=== PATIENT | female | born 1970 | race Caucasian/White ===

== ENCOUNTER 2017-08-18 09:09 | Inpatient (IN) | payer MEDICARE, OTHER ==
[~2017-08-18] VITALS: Ht 172.7 cm; Wt 74.8 kg
[~2017-08-18 09:09] MED LIST: ALBU3IS INH; ALBU90OI INH; ASPI81CH PO; ASPI81EC; ASPI81EC PO; B Complex1 EAC2 PO; BECL80OI INH; CALCA500CH PO; CARV25 PO; CEPH500 PO; CEPHALEXIN; CHLO25 PO; CHOL10002 PO; CIPR500 PO; CRUTCH USE; CYCL10 PO; DOCU100; DOCU100 PO; DOXY100 PO; Duoneb 2.5-0.5 M3 ML INH; FAMO20 PO; FOLI1 PO; FURO20; GUAI600T33 PO; HYDACE5 PO; IBUP200; IBUP800; IBUP800 PO; LEVO750 PO; LISHYD2012 PO; LORA10 PO; MEDR150I; MEDR150I IM; METO50; MULVITMIND; MULVITMIND PO; NAPR500 PO; NAPR550 PO; NEOPOLHCSU OT; NORT10 PO; OMEP20ER; OMEP20ER PO; OXYACE5T PO; OXYC5; PANT20 PO; PENVK500 PO; POLY17UD PO; PRED20 PO; PROM25 PO; Percocet 5-3251 EACH PO; Prednisone10 MG PO; Prednisone20 MG PO; Prinivil5 MG PO; RXOXYACE PO; RXPROM25 PO; STEROID INHALER; SUCR1 PO; SULTRIDS PO; SUMA25 PO; TRAM50 PO; VITB100 PO; ZONI100 PO; Zithromax250 MG PO; [UNRECOGNIZED DRUG - REMARK]
[2017-08-18 09:52] LABS: BASOPHILS ABSOLUTE AUTO 0.05 K/mm3 (0.00-0.23); BASOPHILS PERCENT AUTO 1 % (0-2); EOSINOPHILS ABSOLUTE AUTO 0.26 K/mm3 (0.00-0.68); EOSINOPHILS PERCENT AUTO 4 % (0-6); Hematocrit 44.4 % (33.0-51.0); Hemoglobin 14.5 g/dL (11.5-16.0); IMMATURE GRAN ABSOLUTE AUTO 0.01 K/mm3 (0.00-0.10); IMMATURE GRAN PERCENT AUTO 0 % (0-1); LYMPHOCYTES ABSOLUTE AUTO 2.52 K/mm3 (0.84-5.20); LYMPHOCYTES PERCENT AUTO 34 % (21-46); MONOCYTES ABSOLUTE AUTO 0.52 K/mm3 (0.16-1.47); MONOCYTES PERCENT AUTO 7 % (4-13); Mean Corpuscular HGB 31.3 pg (26.0-34.0); Mean Corpuscular HGB Conc 32.7 g/dL (31.5-36.5); Mean Corpuscular Volume 96 fL (80-100); NEUTROPHILS PERCENT AUTO 55 % (41-73); Platelet Count 301 K/mm3 (150-400); RDW Coefficient Variation 12.2 % (11.7-14.2); RDW Standard Deviation 43.4 fL (35.1-46.3); Red Blood Cell Count 4.63 M/mm3 (3.80-5.20); White Blood Cell Count 7.46 K/mm3 (4.00-11.30)
[2017-08-18 10:08] LABS: Alanine Aminotransfer (ALT/SGP 17 U/L (12-78); Albumin, Blood 3.7 g/dL (3.4-5.0); Alk Phos 98 U/L (50-136); Anion Gap 10 mmol/L (6-16); Aspartate Aminotrans (AST/SGOT 17 U/L (12-37); Bilirubin, Total 0.4 mg/dL (0.1-1.0); Blood Urea Nitrogen 7 mg/dL (8-24); Bun/Creatinine Ratio 9.5 (12.0-20.0); CO2, Blood 24 mmol/L (21-32); Calcium, Blood 8.7 mg/dL (8.5-10.1); Chloride, Blood 105 mmol/L (98-108); Creatinine, Blood 0.74 mg/dL (0.40-1.00); Globulin, Blood 3.8 g/dL (2.2-4.0); Glomerular Filtration Rate >60 (60-); Glucose, Blood 97 mg/dL (70-99); Potassium, Blood 3.8 mmol/L (3.5-5.5); Sodium, Blood 139 mmol/L (136-145); Total Protein, Blood 7.5 g/dL (6.4-8.2)
[2017-08-18] MEDS ORDERED: ANORO ELLIPTA1 EACH INH (10:27)
[2017-08-18] MEDS ORDERED: PROM25 PO (10:28)
[2017-08-18] MEDS ORDERED: SUMA25 PO (10:29)
[2017-08-18] MEDS ORDERED: ALLEGRA ALLERG180 M1 PO (10:30)
[2017-08-18] MEDS ORDERED: Flovent Diskus50 MCG IH (10:31)
[2017-08-18 15:21] LABS: Source, Urine Voided
[2017-08-18 15:30] LABS: Bilirubin, Urine Neg (Neg); Blood, Urine Neg (Neg); Glucose Qualitative, Urine Neg (Neg); Ketones, Urine Neg (Neg); Leukocyte Esterase, Urine Neg (Neg); Nitrite, Urine Neg (Neg); Protein, Urine Neg (Neg); Specific Gravity, Urine 1.015 (1.003-1.022); Urobilinogen, Urine NORM (Normal)
[2017-08-18 15:38] LABS: Appearance, Urine Clear (Clear); Color, Urine Yellow (P-Yellow)
[2017-08-19] MEDS ORDERED: PRED20 PO (12:06)
== END 2017-08-19 13:08 | disposition home or self-care (01) | DRG 282 ==
LOC: ER 09:09 → PCU 11:11
PROVIDERS: Emergency Medicine
PROC: 3E0234Z Introduction of Serum, Toxoid and Vaccine into Muscle, Percutaneous Approach (ICD-10-PCS; 2017-08-18)
PROC: 4A023N7 Measurement of Cardiac Sampling and Pressure, Left Heart, Percutaneous Approach (ICD-10-PCS; principal; 2017-08-19)
PROC: B2111ZZ Fluoroscopy of Multiple Coronary Arteries using Low Osmolar Contrast (ICD-10-PCS; 2017-08-19)
DX: I21.A1 Myocardial infarction type 2 (principal); F17.200 Nicotine dependence, unspecified, uncomplicated; G43.909 Migraine, unspecified, not intractable, without status migrainosus; G89.29 Other chronic pain; J44.9 Chronic obstructive pulmonary disease, unspecified; M54.9 Dorsalgia, unspecified; I10 Essential (primary) hypertension; I34.1 Nonrheumatic mitral (valve) prolapse; I34.0 Nonrheumatic mitral (valve) insufficiency; Z23 Encounter for immunization
CPT/HCPCS: 36415; 71046; 80053; 81003; 83880; 84484; 85025; 93005; 93010; 93308; 93321; 93454; 94640; 94760; 99152; 99285; C1769; C1894; C9113; G0008; J1644; J1650; J2250; J2270; J3010; J7030; Q2038; Q9967

== ENCOUNTER → 2018-03-21 | Outpatient (CLI) | payer MEDICARE ==
[~2018-03-21] MED LIST changes: +ALLEGRA ALLERG180 M1 PO; +ANORO ELLIPTA1 EACH INH; +Flovent Diskus50 MCG IH
[2018-03-23 15:08] LABS: HPV 16 Negative (Negative); HPV 18 Negative (Negative); HPV OTHER HR TYPES Negative (Negative)
== END | disposition home or self-care (01) ==
LOC: LAB 10:03 → LAB SHORT 10:03
PROVIDERS: Obstetrics & Gynecology
DX: Z01.419 Encounter for gynecological examination (general) (routine) without abnormal findings (principal)
CPT/HCPCS: 87624; G0123

== ENCOUNTER 2018-06-07 11:29 | Emergency (ER) | payer OTHER, MEDICARE ==
[~2018-06-07] VITALS: Ht 172.7 cm; Wt 71.7 kg
[2018-06-07] MEDS ORDERED: Voltaren100 GM TOP (12:05)
[2018-06-07] MEDS ORDERED: Baclofen10 MG PO (12:05)
== END 2018-06-07 12:16 | disposition home or self-care (01) ==
LOC: ER 11:29
DX: M54.2 Cervicalgia (principal); I50.9 Heart failure, unspecified; J44.9 Chronic obstructive pulmonary disease, unspecified; F17.200 Nicotine dependence, unspecified, uncomplicated; Z88.1 Allergy status to other antibiotic agents; Z91.030 Bee allergy status; Z88.8 Allergy status to other drugs, medicaments and biological substances; Z91.013 Allergy to seafood; Z79.899 Other long term (current) drug therapy; Z79.51 Long term (current) use of inhaled steroids; Z79.82 Long term (current) use of aspirin; Z79.52 Long term (current) use of systemic steroids; V69.9XXA Occupant (driver) (passenger) of heavy transport vehicle injured in unspecified traffic accident, initial encounter
CPT/HCPCS: 99282

== ENCOUNTER → 2018-11-28 | Outpatient (CLI) | payer MEDICARE ==
[~2018-11-28] MED LIST changes: +Baclofen10 MG PO; +Voltaren100 GM TOP
== END | disposition home or self-care (01) ==
LOC: LAB SHORT 10:46 → PLD 10:46
DX: L57.0 Actinic keratosis (principal)
CPT/HCPCS: 88305

== ENCOUNTER → 2019-03-28 | Outpatient (CLI) | payer MEDICARE ==
[~2019-03-28] MED LIST changes: +Ultram50 MG PO
[2019-03-30 16:06] LABS: HPV 16 Negative (Negative); HPV 18 Negative (Negative); HPV OTHER HR TYPES Negative (Negative)
== END | disposition home or self-care (01) ==
LOC: LAB 12:08 → LAB SHORT 12:08
PROVIDERS: Obstetrics & Gynecology
DX: Z01.419 Encounter for gynecological examination (general) (routine) without abnormal findings (principal)
CPT/HCPCS: 87624; G0123

== ENCOUNTER 2019-04-04 11:00 | Emergency (ER) | payer MEDICARE ==
[~2019-04-04] VITALS: Ht 172.7 cm; Wt 68.5 kg
[~2019-04-04 11:00] MED LIST changes: -Ultram50 MG PO
[2019-04-04] MEDS ORDERED: Ultram50 MG PO (14:05)
== END 2019-04-04 14:15 | disposition home or self-care (01) ==
LOC: ER 11:00
DX: M25.511 Pain in right shoulder (principal); J43.9 Emphysema, unspecified; I50.9 Heart failure, unspecified; F17.200 Nicotine dependence, unspecified, uncomplicated; Z85.07 Personal history of malignant neoplasm of pancreas; Z85.840 Personal history of malignant neoplasm of eye; Z88.1 Allergy status to other antibiotic agents; Z88.8 Allergy status to other drugs, medicaments and biological substances; Z91.013 Allergy to seafood; Z91.030 Bee allergy status; Z79.82 Long term (current) use of aspirin; Z79.899 Other long term (current) drug therapy
CPT/HCPCS: 73030; 96372; 99283-25; J1885

== ENCOUNTER 2019-05-09 05:27 | Day surgery (SDC) | payer MEDICARE ==
[~2019-05-09] VITALS: Ht 172.7 cm; Wt 69.0 kg
[~2019-05-09 05:27] MED LIST changes: +Ultram50 MG PO
--- NOTE | 2019-05-09 08:15 | NUR ---
PT TOLERATES ZUHAIR WELL. VSS. NADN. PT IV DC'D. CATH INTACT. PRESSURE DSG APPLIED. PT DC TO HOME VIA W/C BY S/O\.
== END 2019-05-09 22:55 | disposition home or self-care (01) ==
LOC: MHTC 05:27
DX: I34.0 Nonrheumatic mitral (valve) insufficiency (principal); I25.10 Atherosclerotic heart disease of native coronary artery without angina pectoris; I70.0 Atherosclerosis of aorta; J44.9 Chronic obstructive pulmonary disease, unspecified; F17.210 Nicotine dependence, cigarettes, uncomplicated; I42.9 Cardiomyopathy, unspecified; Z88.8 Allergy status to other drugs, medicaments and biological substances; Z88.1 Allergy status to other antibiotic agents; Z91.030 Bee allergy status; Z91.013 Allergy to seafood; Z79.899 Other long term (current) drug therapy; Z79.82 Long term (current) use of aspirin
CPT/HCPCS: 93312; 93325; 99152; 99153; J2250; J3010; J7030

== ENCOUNTER → 2020-08-13 | Outpatient (CLI) | payer MEDICARE, OTHER ==
[2020-08-15 16:09] LABS: HPV 16 Negative (Negative); HPV 18 Positive (Negative); HPV OTHER HR TYPES Negative (Negative)
== END ==
LOC: LAB SHORT 11:30 → LAB 11:30
PROVIDERS: Obstetrics & Gynecology
DX: Z01.419 Encounter for gynecological examination (general) (routine) without abnormal findings (principal)
CPT/HCPCS: 87624; 87625; G0123

== ENCOUNTER → 2020-09-17 | Outpatient (CLI) | payer MEDICARE, OTHER | END | disposition home or self-care (01) | LOC: LAB 07:56 → LAB SHORT 07:56 | DX: R87.810 Cervical high risk human papillomavirus (HPV) DNA test positive (principal) | CPT/HCPCS: 88305; 88342 ==

== ENCOUNTER 2021-05-20 09:25 | Day surgery (SDC) | payer MEDICARE ==
[~2021-05-20] VITALS: Ht 172.7 cm; Wt 65.1 kg
[2021-05-20] MEDS ORDERED: LORA10ER PO (09:42)
[2021-05-20] MEDS ORDERED: ALBUTEROL1.25 MG/3 IH (09:46)
== END 2021-05-20 11:05 | disposition home or self-care (01) ==
LOC: ORSCSDS 09:25
PROVIDERS: Ophthalmology
PROC: 08RK3JZ Replacement of Left Lens with Synthetic Substitute, Percutaneous Approach (ICD-10-PCS; principal; 2021-05-20 10:30)
DX: H25.12 Age-related nuclear cataract, left eye (principal); J44.9 Chronic obstructive pulmonary disease, unspecified; I10 Essential (primary) hypertension; J45.909 Unspecified asthma, uncomplicated; F17.210 Nicotine dependence, cigarettes, uncomplicated; Z79.82 Long term (current) use of aspirin; Z79.899 Other long term (current) drug therapy
CPT/HCPCS: J2001; J2250; J3010; J3301; J3370; J7040; V2632

== ENCOUNTER → 2022-01-12 | Outpatient (CLI) | payer MEDICARE ==
[~2022-01-12] MED LIST changes: +ALBUTEROL1.25 MG/3 IH; +LORA10ER PO
[2022-01-13 15:10] LABS: HPV 16 Negative (Negative); HPV 18 Positive (Negative); HPV OTHER HR TYPES Negative (Negative)
== END | disposition home or self-care (01) ==
LOC: LAB SHORT 11:46 → LAB 11:46
PROVIDERS: Advanced Practice Midwife
DX: R87.619 Unspecified abnormal cytological findings in specimens from cervix uteri (principal)
CPT/HCPCS: 87624; 88142

== ENCOUNTER → 2022-02-11 | Outpatient (CLI) | payer MEDICARE | LOC: LAB SHORT 12:54 → PLD 12:54 | DX: R87.619 Unspecified abnormal cytological findings in specimens from cervix uteri (principal) | CPT/HCPCS: 88305 ==

== ENCOUNTER 2022-11-01 05:45 | Day surgery (SDC) | payer MEDICARE ==
[~2022-11-01] VITALS: Ht 172.7 cm; Wt 65.0 kg
[2022-11-01] MEDS ORDERED: IPRAT-ALBUT 0.5-3 ML IH (06:20)
[2022-11-01] MEDS ORDERED: EPIPEN0.3 MG/0.3 IM (06:21)
--- NOTE | 2022-11-01 08:02 | NUR ---
PT VERBALIZED UNDERSTANDING OF WRITTEN AND VERBAL D/C INST. IV REMOVED. AMB OUT OF THE HRT CENTER /S DIFFICULTY.
== END 2022-11-01 22:52 | disposition home or self-care (01) ==
LOC: MHTC 05:45
DX: I34.0 Nonrheumatic mitral (valve) insufficiency (principal); J44.9 Chronic obstructive pulmonary disease, unspecified; J45.909 Unspecified asthma, uncomplicated; Z88.8 Allergy status to other drugs, medicaments and biological substances; Z91.013 Allergy to seafood; Z88.2 Allergy status to sulfonamides
CPT/HCPCS: 93312; 93325; A9270; J2405; J2704; J7030

== ENCOUNTER 2022-11-23 07:42 | Day surgery (SDC) | payer MEDICARE ==
[~2022-11-23] VITALS: Ht 172.7 cm; Wt 64.1 kg
[~2022-11-23 07:42] MED LIST changes: +EPIPEN0.3 MG/0.3 IM; +IPRAT-ALBUT 0.5-3 ML IH
[2022-11-23] MEDS ORDERED: Vitamin C100 M1 (08:04)
[2022-11-23 10:54] VITALS: BP 134/86
== END 2022-11-23 10:50 | disposition home or self-care (01) ==
LOC: ORSCSDS 07:42
PROVIDERS: Student in an Organized Health Care Education/Training Program
PROC: 0DBK8ZX Excision of Ascending Colon, Via Natural or Artificial Opening Endoscopic, Diagnostic (ICD-10-PCS; principal; 2022-11-23 09:00)
PROC: 0D758ZZ Dilation of Esophagus, Via Natural or Artificial Opening Endoscopic (ICD-10-PCS; principal; 2022-11-23 09:00)
PROC: 0DB48ZX Excision of Esophagogastric Junction, Via Natural or Artificial Opening Endoscopic, Diagnostic (ICD-10-PCS; principal; 2022-11-23 09:00)
PROC: 0DBN8ZX Excision of Sigmoid Colon, Via Natural or Artificial Opening Endoscopic, Diagnostic (ICD-10-PCS; principal; 2022-11-23 09:00)
PROC: 0DBG8ZX Excision of Left Large Intestine, Via Natural or Artificial Opening Endoscopic, Diagnostic (ICD-10-PCS; principal; 2022-11-23 09:00)
PROC: 0DBF8ZX Excision of Right Large Intestine, Via Natural or Artificial Opening Endoscopic, Diagnostic (ICD-10-PCS; principal; 2022-11-23 09:00)
PROC: 0DBL8ZX Excision of Transverse Colon, Via Natural or Artificial Opening Endoscopic, Diagnostic (ICD-10-PCS; principal; 2022-11-23 09:00)
PROC: 0DB68ZX Excision of Stomach, Via Natural or Artificial Opening Endoscopic, Diagnostic (ICD-10-PCS; principal; 2022-11-23 09:00)
PROC: 0DBP8ZX Excision of Rectum, Via Natural or Artificial Opening Endoscopic, Diagnostic (ICD-10-PCS; principal; 2022-11-23 09:00)
PROC: 0DB98ZX Excision of Duodenum, Via Natural or Artificial Opening Endoscopic, Diagnostic (ICD-10-PCS; principal; 2022-11-23 09:00)
PROC: 0DB58ZX Excision of Esophagus, Via Natural or Artificial Opening Endoscopic, Diagnostic (ICD-10-PCS; principal; 2022-11-23 09:00)
DX: R13.10 Dysphagia, unspecified (principal); B37.81 Candidal esophagitis; K29.40 Chronic atrophic gastritis without bleeding; K44.9 Diaphragmatic hernia without obstruction or gangrene; D12.2 Benign neoplasm of ascending colon; D12.3 Benign neoplasm of transverse colon; D12.8 Benign neoplasm of rectum; K57.30 Diverticulosis of large intestine without perforation or abscess without bleeding; K59.00 Constipation, unspecified; Z83.71 Family history of colonic polyps; J44.9 Chronic obstructive pulmonary disease, unspecified; I10 Essential (primary) hypertension; I50.9 Heart failure, unspecified; K21.9 Gastro-esophageal reflux disease without esophagitis; Z86.73 Personal history of transient ischemic attack (TIA), and cerebral infarction without residual deficits; Z79.899 Other long term (current) drug therapy; F17.210 Nicotine dependence, cigarettes, uncomplicated
CPT/HCPCS: 88305; 88342; J2704; J7120

== ENCOUNTER 2023-11-01 06:01 | Emergency (ER) | payer MEDICARE ==
[~2023-11-01] VITALS: Ht 172.7 cm; Wt 63.5 kg
[~2023-11-01 06:01] MED LIST changes: +Vitamin C100 M1
[2023-11-01] MEDS ORDERED: Azithromycin 500 MG in NS 250 ML IV ONE (06:25)
[2023-11-01] MEDS ORDERED: Albuterol 2.5 MG/3 ML VIAL INH SCH ×2 (06:25→08:05)
[2023-11-01] MEDS ORDERED: MethylPREDNISolone Sod Succ 125 MG Vial IV ONE (06:25)
[2023-11-01] MEDS ORDERED: Ipratropium/Albuterol SulF 2.5-0.5MG/3 ML Amp INH ONE (06:25)
[2023-11-01 06:30] LABS: BASOPHILS ABSOLUTE AUTO 0.04 K/mm3 (0.00-0.23); BASOPHILS PERCENT AUTO 0 % (0-2); EOSINOPHILS PERCENT AUTO 1 % (0-6); Hematocrit 45.9 % (33.0-51.0); Hemoglobin 15.1 g/dL (11.5-16.0); IMMATURE GRAN ABSOLUTE AUTO 0.05 K/mm3 (0.00-0.10); IMMATURE GRAN PERCENT AUTO 0 % (0-1); LYMPHOCYTES ABSOLUTE AUTO 1.71 K/mm3 (0.84-5.20); LYMPHOCYTES PERCENT AUTO 11 % (21-46); MONOCYTES ABSOLUTE AUTO 0.78 K/mm3 (0.16-1.47); MONOCYTES PERCENT AUTO 5 % (4-13); Mean Corpuscular HGB Conc 32.9 g/dL (31.5-36.5); Mean Corpuscular Volume 97 fL (80-100); Mean Platelet Volume 9.4 fL (9.1-12.4); NEUTROPHILS ABSOLUTE AUTO 12.82 K/mm3 (1.96-9.15); NEUTROPHILS PERCENT AUTO 82 % (41-73); Platelet Count 288 K/mm3 (150-400); RDW Coefficient Variation 12.8 % (11.7-14.2); RDW Standard Deviation 46.3 fL (35.1-46.3); Red Blood Cell Count 4.72 M/mm3 (3.80-5.20)
[2023-11-01 06:32] LABS: Base Excess Venous 7.2 mmol/L; Bicarbonate Venous 28.1 mmol/L (24.0-30.0); PCO2 Venous 58.3 mmHg (38-42); pH Blood Venous 7.36 (7.34-7.37)
[2023-11-01 06:45] LABS: Albumin, Blood 3.7 g/dL (3.4-5.0); Albumin/Globulin Ratio 0.9 (0.8-1.8); Bilirubin, Total 0.3 mg/dL (0.1-1.0); Bun/Creatinine Ratio 17.5 (12.0-20.0); Creatinine, Blood 0.57 mg/dL (0.40-1.00); Magnesium, Blood 2.1 mg/dL (1.6-2.4); Potassium, Blood 4.1 mmol/L (3.5-5.5); Total Protein, Blood 7.7 g/dL (6.4-8.2)
[2023-11-01] MEDS ORDERED: NS 1,000 ML IV SCH (06:50)
[2023-11-01 07:09] LABS: Influenza A, PCR NEGATIVE (NEGATIVE); Influenza B, PCR NEGATIVE (NEGATIVE); Resp Syncytial Virus, PCR NEGATIVE (NEGATIVE); SARS-Cov-2 (COVID-19) PCR, MMC NEGATIVE (NEGATIVE)
[2023-11-01 09:20] VITALS: BP 121/77
[2023-11-01] MEDS ORDERED: AZIT250 PO (09:24)
[2023-11-01] MEDS ORDERED: ALBU90OI INH (09:24)
[2023-11-01] MEDS ORDERED: IPRAT-ALBUT 0.5-3 ML INH (09:24)
[2023-11-01] MEDS ORDERED: PRED20 PO (09:24)
== END 2023-11-01 09:29 | disposition home or self-care (01) ==
LOC: ER 06:01
PROVIDERS: Student in an Organized Health Care Education/Training Program
DX: J44.1 Chronic obstructive pulmonary disease with (acute) exacerbation (principal); R06.03 Acute respiratory distress; R09.02 Hypoxemia; I11.0 Hypertensive heart disease with heart failure; I50.9 Heart failure, unspecified; F17.210 Nicotine dependence, cigarettes, uncomplicated; Z88.1 Allergy status to other antibiotic agents; Z91.030 Bee allergy status; Z88.8 Allergy status to other drugs, medicaments and biological substances; Z91.013 Allergy to seafood; Z79.51 Long term (current) use of inhaled steroids; Z79.899 Other long term (current) drug therapy
CPT/HCPCS: 0241U; 71045; 80053; 82803; 83735; 83880; 84145; 85025; 93005; 93010; 94644; 94645; 94664; 96365; 96375; 99285-25; J0456; J2930; J7030; J7050

== ENCOUNTER → 2024-10-30 | Outpatient (CLI) | payer MEDICARE ==
[~2024-10-30] MED LIST changes: +AZIT250 PO; +IPRAT-ALBUT 0.5-3 ML INH; +MECL12.5 PO; +ONDA4ODT MM; +OXYC5 PO
== END ==
LOC: LAB SHORT 07:51 → LAB 07:51
DX: N39.0 Urinary tract infection, site not specified (principal)
CPT/HCPCS: 87077; 87086; 87186

== ENCOUNTER 2025-03-02 13:32 | Inpatient (IN) | payer MEDICARE ==
[~2025-03-02] VITALS: Ht 172.7 cm; Wt 49.5 kg
[2025-03-02 14:47] LABS: BASOPHILS ABSOLUTE AUTO 0.01 K/mm3 (0.00-0.23); BASOPHILS PERCENT AUTO 0 % (0-2); EOSINOPHILS ABSOLUTE AUTO 0.13 K/mm3 (0.00-0.68); EOSINOPHILS PERCENT AUTO 2 % (0-6); Hematocrit 39.1 % (33.0-51.0); Hemoglobin 13.0 g/dL (11.5-16.0); IMMATURE GRAN ABSOLUTE AUTO 0.01 K/mm3 (0.00-0.10); IMMATURE GRAN PERCENT AUTO 0 % (0-1); LYMPHOCYTES ABSOLUTE AUTO 2.02 K/mm3 (0.84-5.20); LYMPHOCYTES PERCENT AUTO 31 % (21-46); MONOCYTES ABSOLUTE AUTO 0.69 K/mm3 (0.16-1.47); MONOCYTES PERCENT AUTO 11 % (4-13); Mean Corpuscular HGB Conc 33.2 g/dL (31.5-36.5); Mean Corpuscular Volume 91 fL (80-100); NEUTROPHILS ABSOLUTE AUTO 3.67 K/mm3 (1.96-9.15); NEUTROPHILS PERCENT AUTO 56 % (41-73); NRBC ABSOLUTE 0.00 K/mm3 (0.00-0.02); NRBC Auto 0.0 /100 WBC (0.0-0.2); Platelet Count 199 K/mm3 (150-400); RDW Coefficient Variation 12.6 % (11.7-14.2); RDW Standard Deviation 41.4 fL (35.1-46.3)
[2025-03-02 15:07] LABS: Alanine Aminotransfer (ALT/SGP 50.0 U/L (12-78); Albumin, Blood 2.9 g/dL (3.4-5.0); Albumin/Globulin Ratio 0.8 (0.8-1.8); Anion Gap 5.0 mmol/L (3-11); Aspartate Aminotrans (AST/SGOT 37.0 U/L (12-37); Bilirubin, Total 0.4 mg/dL (0.1-1.0); Blood Urea Nitrogen 18.0 mg/dL (8-24); CO2, Blood 34.0 mmol/L (21-32); Calcium, Blood 8.5 mg/dL (8.5-10.1); Chloride, Blood 103.0 mmol/L (98-108); Creatinine, Blood 0.53 mg/dL (0.40-1.00); Globulin, Blood 3.5 g/dL (2.2-4.0); Glucose, Blood 150.0 mg/dL (70-99); Potassium, Blood 3.4 mmol/L (3.5-5.5); Sodium, Blood 139.0 mmol/L (136-145); Total Protein, Blood 6.4 g/dL (6.4-8.2)
[2025-03-02] MEDS ORDERED: Albuterol 2.5 MG/3 ML VIAL INH PRN (17:55)
[2025-03-02] MEDS ORDERED: Potassium Chl 20MEQ/Water100ML 100 ML IV STA (17:57)
[2025-03-02] MEDS ORDERED: Ipratropium/Albuterol SulF 2.5-0.5MG/3 ML Amp INH SCH (18:00)
[2025-03-02] MEDS ORDERED: NS 1,000 ML IV SCH (18:05)
[2025-03-02 21:46] VITALS: BP 133/88
[2025-03-03] VITALS (7 sets, daily range): BP systolic 96–184; BP diastolic 70–94
--- NOTE | 2025-03-03 02:09 | NUR ---
called to room by Pt, very dyspenic, diaphoretic, unable to take deep breath, RT called to administer tx. vs with HR in 130-150 range, Pt was on RA and now placed on 5L/nc, was 86% on RA. MS notified of changes, he states he's not concerned unless HR increases above 150. will continue to monitor.
[2025-03-03 02:54] LABS: pH Blood Venous 7.42 (7.34-7.37)
[2025-03-03 03:12] LABS: Magnesium, Blood 1.4 mg/dL (1.6-2.4)
[2025-03-03 03:13] LABS: Anion Gap 7.0 mmol/L (3-11); Blood Urea Nitrogen 14.0 mg/dL (8-24); CO2, Blood 35.0 mmol/L (21-32); Calcium, Blood 8.4 mg/dL (8.5-10.1); Chloride, Blood 102.0 mmol/L (98-108); Creatinine, Blood 0.49 mg/dL (0.40-1.00); Glucose, Blood 104.0 mg/dL (70-99); Potassium, Blood 3.7 mmol/L (3.5-5.5); Sodium, Blood 140.0 mmol/L (136-145)
[2025-03-03] MEDS ORDERED: Mag Sulfate 1 GM/D5% 100ML 100 ML IV STA (08:21)
[2025-03-03] MEDS ORDERED: Enoxaparin 40 MG/0.4 ML SYR SC SCH (09:00)
[2025-03-03] MEDS ORDERED: NS 250 ML IV PRN (09:30)
[2025-03-03 10:32] LABS: U Amphetamine Screen Not Detected; U Barbituate Screen Not Detected; U Benzodiazapine Screen Not Detected; U Buprenorphine Screen Not Detected; U Cannabinoids Screen DETECTED; U Cocaine Screen Not Detected; U Methadone Screen Not Detected; U Methamphetamine Screen Not Detected; U Opiates Screen Not Detected; U Oxycodone Screen Not Detected; U Phencyclidine Screen Not Detected
[2025-03-03] MEDS ORDERED: Midazolam HCl 1MG / ML 2ML Vial IV ONE (17:00)
[2025-03-03] MEDS ORDERED: Propofol 10mg/ml 20 ml Vial (Procedural) IV ONE (17:00)
--- NOTE | 2025-03-03 17:49 | NUR ---
SHIFT SUMMARY: PT A&O X4. PLEASANT AND COOPERATIVE WITH CARE. INDEPENDENT IN ROOM. PT FOUND TO HAVE HYPERTHYROID. STARTED ON TAPAZOLE. US HEAD/NECK BEING COMPLETED AT THIS TIME. TELE IN PLACE RUNNING BETWEEN AFIB AND SINUS TACHY. PT TACHY TO 140'S TO 150'S WHEN AMBULATING. ON 2L FLUID REST. MAGNESIUM REPLACED THIS AM VIA IV. ON 3L MAINTAINING SATS >92%. C/O SOB ONCE THIS SHIFT. CALL LIGHT IN REACH. BED IN LOWEST POSITION.,
[2025-03-04] VITALS (9 sets, daily range): BP systolic 100–134; BP diastolic 61–98
--- NOTE | 2025-03-04 06:33 | NUR ---
SUMMARY ALERT & ORIENTED, AMBULATORY, VSS EXCEPT FOR HR AND TELE READING SINUS TACH TO SINUS RHYTYM WHEN HR GOES SLIGHTLY BELOW 100 BPM. APPEARS RESTLESS WITH MILD ANXIETY DUE TO HYPERTHYROID CONDITION. UNABLE TO TOLERATE RA FOR NOW SHE REQUESTS FOR PRN NEBS OCCASIONALLY FOR HER BREATHING DISCOMFORT. PROVIDED DARK AND QUIET ROOM FOR OPTIMAL REST SHE REQUESTS. ADVISED TO DISCUSSED ABT HER PROBABLE YEAST INFECTION IN THE MORNING NOT VERY URGENT.
--- NOTE | 2025-03-04 08:28 | NUR ---
CALL FROM GIL, PCU CHARGE, WHO HAD GOTTEN CALL FROM DR. AGUILAR THAT PATIENT NEEDED TO BE TRANSFERRED TO PCU. PT TRANSFERRED c ALL BELONGINGS AND CHART TO [id number]. BEDSIDE REPORT GIVEN TO KEVIN MCCOY.
[2025-03-04] MEDS ORDERED: NS 1,000 ML IV ONE ×2 (10:16→10:47)
[2025-03-04] MEDS ORDERED: Heparin Sodium 1000 Units/ML 10ML MDV ONE (10:16)
[2025-03-04] MEDS ORDERED: Verapamil HCL 2.5 MG/ML 2ML Injection ONE (10:16)
[2025-03-04] MEDS ORDERED: NS 250 ML IV ONE (10:17)
[2025-03-04] MEDS ORDERED: Nitroglycerin 2 MG/20 ML BTL ONE (10:17)
[2025-03-04] MEDS ORDERED: Midazolam HCl 1MG / ML 2ML Vial ONE (10:47)
[2025-03-04] MEDS ORDERED: FentaNYL Citrate 50 MCG/ML 2 ML Injection ONE (10:47)
--- NOTE | 2025-03-04 17:22 | NUR ---
SHIFT SUMMARY. SHIFT HAS GONE WELL OVERALL. PT AOX4, PLEASANT, COOPERATIVE, ABLE TO MAKE NEEDS KNOWN. HAS DENIED PAIN THROUGHOUT SHIFT. TR BAND RECOVERED THIS AFTERNOON, RWR SITE C/D/I W/ TEGADERM AND ARM BOARD IN PLACE. VITALS STABLE THROUGHOUT SHIFT. THIS AFTERNOON, WAS ABLE TO TITRATE OFF OXYGEN TO ROOM AIR, PT MAINTAINING 90-92% AT THIS TIME. LUNG SOUNDS MORE CLEAR ON AUSCULTATION THIS AFTERNOON COMPARED TO THIS MORNING. URINE OUTPUT HAS BEEN CONSISTENT, CHARTED APPROPRIATELY. CONTINUES TO RUN SINUS ON TELE WITH RATE IN THE 80s-90s. INDEPENDENT TO BATHROOM, CALLS APPROPRIATELY FOR ASSISTANCE. BED LOCKED IN LOWEST POSITION. CALL LIGHT WITHIN REACH.
[2025-03-05] VITALS (28 sets, daily range): BP systolic 94–138; BP diastolic 61–99
[2025-03-05 04:25] LABS: TSH RECEPTOR ANTIBODY 8.63 IU/L (<=1.75)
--- NOTE | 2025-03-05 05:21 | NUR ---
SHIFT SUMMARY NO ACUTE EVENTS OVERNIGHT. VSS ON RA >90%. NO CHEST PAIN/PRESSURE. NO SOB NOTED OR STATED. PT MADE NPO @ MIDNIGHT FOR ZUHAIR 03/05. PT REQUESTED MELATONIN FOR SLEEP AND GIVEN WITH GOOD RELIEF. NO FURTHER QUESTIONS OR CONCERNS AT THIS TIME. WILL CONTINUE WITH PLAN OF CARE.
[2025-03-05] MEDS ORDERED: Benzocaine Oral Spray 0.5ML UD ONE (08:30)
[2025-03-05] MEDS ORDERED: NS 1,000 ML IV ONE (08:43)
--- NOTE | 2025-03-05 09:35 | NUR ---
PT AWAKE AND CONVERSING, DENIES PAIN POST PROCEDURE, VSS.
--- NOTE | 2025-03-05 09:54 | NUR ---
REPORT CALLED TO KEVIN BATEMAN; ALL QUESTIONS ANSWERED. PT TRANSFERRED BACK TO PCU 08 VIA W/C, CONDITION STABLE.
--- NOTE | 2025-03-05 15:57 | NUR ---
COBRA TRANSFER PT TRANSFERRED TO [facility]. PT A&OX4, VSS, AMB IND, TOLERATING PO, VOIDING, AND DENIED PAIN. BELONGINGS WERE RETURNED. REPORT CALLED TO [facility] BY [employer]OOTER, GIL. PT ESCOURTED OUT BY TRANSPORT.
--- NOTE | 2025-03-05 15:58 | NUR ---
Telephone report provided to Chad Sousa accepting RN. Questions answered. Pt left from unit via gurney accompanied by ambulance staff x2 at approx [phone]. No s/s of acute distress at that time.
== END 2025-03-05 16:00 | disposition short-term general hospital (02) | DRG 286 ==
LOC: ER 13:32 → MEDS 17:49 → ER 20:25 → MEDS 03-03 14:32 → PCU 03-03 14:32 → MEDS 03-03 22:33 → PCU 03-04 08:29
PROVIDERS: Family Medicine; Nurse Practitioner Acute Care; Physician Assistant; ADMIT Student in an Organized Health Care Education/Training Program
PROC: 4A023N6 Measurement of Cardiac Sampling and Pressure, Right Heart, Percutaneous Approach (ICD-10-PCS; principal; 2025-03-04)
PROC: B2111ZZ Fluoroscopy of Multiple Coronary Arteries using Low Osmolar Contrast (ICD-10-PCS; 2025-03-04)
PROC: 4A133B3 Monitoring of Arterial Pressure, Pulmonary, Percutaneous Approach (ICD-10-PCS; 2025-03-04)
PROC: 4A1239Z Monitoring of Cardiac Output, Percutaneous Approach (ICD-10-PCS; 2025-03-04)
PROC: B24BZZ4 Ultrasonography of Heart with Aorta, Transesophageal (ICD-10-PCS; 2025-03-05)
DX: I34.0 Nonrheumatic mitral (valve) insufficiency (principal); I50.23 Acute on chronic systolic (congestive) heart failure; I48.20 Chronic atrial fibrillation, unspecified; I25.10 Atherosclerotic heart disease of native coronary artery without angina pectoris; J44.9 Chronic obstructive pulmonary disease, unspecified; E87.6 Hypokalemia; F17.210 Nicotine dependence, cigarettes, uncomplicated; I25.5 Ischemic cardiomyopathy; I10 Essential (primary) hypertension; I27.22 Pulmonary hypertension due to left heart disease; E05.00 Thyrotoxicosis with diffuse goiter without thyrotoxic crisis or storm; E83.42 Hypomagnesemia; Z91.198 Patient's noncompliance with other medical treatment and regimen for other reason; Z88.8 Allergy status to other drugs, medicaments and biological substances; Z88.1 Allergy status to other antibiotic agents; I25.2 Old myocardial infarction; Z79.52 Long term (current) use of systemic steroids; Z85.41 Personal history of malignant neoplasm of cervix uteri; Z95.1 Presence of aortocoronary bypass graft; Z85.07 Personal history of malignant neoplasm of pancreas; Z85.840 Personal history of malignant neoplasm of eye
CPT/HCPCS: 36415; 71046; 71260; 76536; 76937; 80048; 80053; 82803; 83520; 83690; 83735; 83880; 84439; 84443; 84481; 84484; 85025; 85379; 93005; 93010; 93306; 93312; 93325; 93456; 94640; 94760; 94762; 96365; 96367; 96372; 96374; 96375; 96376; 99285-25; A9270; C1769; C1887; C1894; G0378; J1644; J1650; J1938; J2250; J2704; J3010; J3475; J3480; J7030; J7050; Q9967